=== PATIENT | male | born 1950 | race Caucasian/White ===

== ENCOUNTER → 2016-08-20 | Outpatient (CLI) | payer OTHER | LOC: BMCIMAGING 11:32 | PROVIDERS: ATTEND Internal Medicine | DX: M25.562 Pain in left knee (principal) ==

== ENCOUNTER 2017-01-20 12:38 | Emergency (ER) | payer OTHER ==
[2017-01-20 12:44] VITALS: RESP 16
[2017-01-20] MEDS ORDERED: NS 500 ML IV ONE (13:19)
--- NOTE | 2017-01-20 13:23 | EDPHY ---
H & P Time Seen by Provider: 01/20/17 13:12 HPI/ROS: CHIEF COMPLAINT: Right-sided back pain HISTORY OF PRESENT ILLNESS: 66-year-old male with a history of factor 5 Leiden deficiency and prior pulmonary embolism presents with right-sided back pain. Onset of a dull achy right mid back pain yesterday. The pain is constant and does not change with deep inspiration or exertion. The pain is similar to his 2 prior episodes of pulmonary embolism. He is on Coumadin. INR last week was 2.0. No shortness of breath or cough. REVIEW OF SYSTEMS: Constitutional: No fever, no chills Eyes: No visual changes ENT: No sore throat Respiratory: No cough, no shortness of breath Gastrointestinal: No nausea, no vomiting, no abdominal pain Genitourinary: no dysuria Musculoskeletal: No leg pain or swelling Skin: No rash Neurological: No headache Psychiatric: No depression Past Medical/Surgical History: Factor 5 Leiden deficiency Pulmonary embolism [id number] Social History: No recent alcohol PCP: Dr. Lizabeth French Smoking Status: Former smoker Physical Exam: General Appearance: Alert, pleasant Eyes: Pupils equal and round, no conjunctival pallor or injection ENT, Mouth: Mucous membranes moist Neck: Normal inspection Respiratory: normal inspection, no tachypnea, Lungs are clear to auscultation Cardiovascular: Regular rate and rhythm Gastrointestinal: Abdomen is soft and nontender Back: Normal inspection, no tenderness or rash Neurological: A&O, nonfocal, normal gait Skin: Warm and dry, no rash Extremities: Nontender, no pedal edema Psychiatric: Mood and affect normal Constitutional: Initial Vital Signs Heart Rate 64 01/20/17 12:42 Respiratory Rate 16 01/20/17 12:42 Blood Pressure 129/82 H 01/20/17 12:42 O2 Sat (%) 97 01/20/17 12:42 O2 Delivery Mode Room Air Allergies/Adverse Reactions: Sulfa (Sulfonamide Antibiotics) Allergy (Mild, Verified 01/20/17 12:42) Other-Enter Comments Home Medications: Medication Instructions Recorded Warfarin Sodium [Coumadin 5MG (*)] 5 mg PO DAILY16 #30 tab 10/11/14 Medical Decision Making - Diagnostics EKG Interpretation: EKG interpreted by me reveals normal sinus rhythm, rate 57, no ST or T segment changes. Impression: Normal EKG Imaging Results: Imaging Impressions Chest/Thorax CTA 01/20/17 13:19 Impression: 1. No evidence of thrombopulmonary embolic disease. 2. Minimal bibasilar atelectasis and mild airways disease. No pneumonia or mass. Findings discussed with Emergency Department physician, Jenifer Chauhan, at 1427 hours 01/20/2017. ED Course/Re-evaluation: This patient presents with right-sided back pain and prior history of pulmonary embolism x2 with similar symptoms. Although his vital signs are normal and oxygen saturation is normal, he is at high risk for pulmonary embolism. A CT pulmonary angiogram was ordered. CT scan results discussed with the patient. Fortunately there is no evidence of acute pulmonary embolism. Warning signs discussed. He will follow up with his primary care physician for further evaluation. Differential Diagnosis: Differential diagnosis includes though it is not limited to musculoskeletal pain , pneumonia, pneumothorax, pulmonary embolism, aortic dissection, pericarditis, acute coronary syndrome. - Data Points Laboratory Results: Laboratory Results 01/20/17 13:02 01/20/17 13:02 01/20/17 01/20/17 01/20/17 13:02 13:02 13:02 WBC 7.03 10^3/uL 10^3/uL (3.80-9.50) RBC 5.12 10^6/uL 10^6/uL (4.40-6.38) Hgb 16.1 g/dL g/dL (13.7-17.5) Hct 47.2 % % (40.0-51.0) MCV 92.2 fL fL (81.5-99.8) MCH 31.4 pg pg (27.9-34.1) MCHC 34.1 g/dL g/dL (32.4-36.7) RDW 12.8 % % (11.5-15.2) Plt Count 214 10^3/uL 10^3/uL (150-400) MPV 10.4 fL fL (8.7-11.7) Neut % (Auto) 48.8 % % (39.3-74.2) Lymph % (Auto) 39.7 % % (15.0-45.0) [place] % (Auto) 7.5 % % (4.5-13.0) Eos % (Auto) 3.3 % % (0.6-7.6) Baso % (Auto) 0.4 % % (0.3-1.7) Nucleat RBC Rel Count 0.0 % % (0.0-0.2) Absolute Neuts (auto) 3.43 10^3/uL 10^3/uL (1.70-6.50) Absolute Lymphs (auto) 2.79 10^3/uL 10^3/uL (1.00-3.00) Absolute Monos (auto) 0.53 10^3/uL 10^3/uL (0.30-0.80) Absolute Eos (auto) 0.23 10^3/uL 10^3/uL (0.03-0.40) Absolute Basos (auto) 0.03 10^3/uL 10^3/uL (0.02-0.10) Absolute Nucleated RBC 0.00 10^3/uL 10^3/uL (0-0.01) Immature Gran % 0.3 % % (0.0-1.1) Immature Gran # 0.02 10^3/uL 10^3/uL (0.00-0.10) PT 28.1 SEC H SEC (12.0-15.0) INR 2.60 H (0.83-1.16) Sodium 137 mEq/L mEq/L (134-144) Potassium 4.0 mEq/L mEq/L (3.5-5.2) Chloride 101 mEq/L mEq/L (97-110) Carbon Dioxide 24 mEq/l mEq/l (22-31) Anion Gap 12 mEq/L mEq/L (8-16) BUN 19 mg/dL mg/dL (7-23) Creatinine 0.9 mg/dL mg/dL (0.7-1.3) Estimated GFR > 60 Glucose 88 mg/dL mg/dL (70-100) Calcium 9.4 mg/dL mg/dL (8.5-10.4) Medications Given: Discontinued Medications Sodium Chloride (Ns) 500 mls @ 1,000 mls/hr IV EDNOW ONE PRN Reason: Protocol Stop: 01/20/17 13:48 Last Admin: 01/20/17 13:34 Dose: 500 mls Departure - Departure Disposition: Home, Routine, Self-Care Clinical Impression: Thoracic back pain Qualifiers: Chronicity: acute Back pain laterality: right Qualified Code(s): M54.6 - Pain in thoracic spine Condition: Good Instructions: Back Pain (ED) Additional Instructions: You do not have a blood clot in your lungs. Continue taking Coumadin as prescribed. Return for worsening symptoms or any concerns. Referrals: Maggie Clayton NP [Primary Care Provider] - As per Instructions
[2017-01-20 13:27] LABS: % IMMATURE GRANULYOCYTES 0.3 % (0.0-1.1); ABSOLUTE IMMATURE GRANULOCYTES 0.02 10^3/uL (0.00-0.10); ADD DIFF? NO; ADD MORPH? NO; ADD SCAN? NO; ATYPICAL LYMPHOCYTE FLAG 0 (0-99); FRAGMENT RBC FLAG 0 (0-99); HEMATOCRIT 47.2 % (40.0-51.0); HEMOGLOBIN 16.1 g/dL (13.7-17.5); LEFT SHIFT FLG 0 (0-99); LIPEMIA HEMOLYSIS FLAG 90 (0-99); MEAN CELL HEMOGLOBIN 31.4 pg (27.9-34.1); MEAN CELL HEMOGLOBIN CONCENTR. 34.1 g/dL (32.4-36.7); MEAN CELL VOLUME 92.2 fL (81.5-99.8); MEAN PLATELET VOLUME 10.4 fL (8.7-11.7); PLATELET CLUMPS FLAG 10 (0-99); PLATELET COUNT 214 10^3/uL (150-400); RED BLOOD CELL COUNT 5.12 10^6/uL (4.40-6.38); RED CELL DISTRIBUTION WIDTH 12.8 % (11.5-15.2)
--- NOTE | 2017-01-20 13:33 | CPEKG ---
Heart Rate: 57 RR Interval: 1053 P-R Interval: 156 QRSD Interval: 98 QT Interval: 416 QTC Interval: 405 P [place]: 22 QRS [place]: -26 T Wave [place]: 34 EKG Severity - OTHERWISE NORMAL ECG - EKG Impression: SINUS RHYTHM EKG Impression: BORDERLINE LEFT AXIS DEVIATION Electronically Signed By: Jenifer Chauhan 20-Jan-2017 15:13:24
[2017-01-20] MEDS ORDERED: IOPAMIDOL (ISOVUE 370) 100 ML BTL IV ONE (13:34)
[2017-01-20 13:39] LABS: ANION GAP 12 mEq/L (8-16); CALCIUM 9.4 mg/dL (8.5-10.4); CARBON DIOXIDE 24 mEq/l (22-31); CHLORIDE 101 mEq/L (97-110); CREATININE 0.9 mg/dL (0.7-1.3); GLOMERULAR FILTRATION RATE > 60; GLUCOSE 88 mg/dL (70-100); SODIUM 137 mEq/L (134-144)
[2017-01-20 13:41] LABS: INR 2.6 (0.83-1.16); PROTIME(PATIENT) 28.1 SEC (12.0-15.0)
[2017-01-20 14:34] VITALS: BP 110/75; PULSE 72; O2SAT 94
== END 2017-01-20 14:33 | disposition home or self-care (01) ==
DX: M54.6 Pain in thoracic spine (principal); E86.9 Volume depletion, unspecified; Z79.01 Long term (current) use of anticoagulants; Z87.891 Personal history of nicotine dependence
CPT/HCPCS: Q9967